=== PATIENT | female | born 1930 | race Caucasian/White ===

== ENCOUNTER 2019-07-16 11:54 | Day surgery (SDC) | payer MEDICARE, BC ==
[2019-07-16] VITALS (11 sets, daily range): BP systolic 125–187; BP diastolic 60–93; PULSE 59–108; TEMP 97.5–98.1
[~2019-07-16] VITALS: Ht 165.1 cm; Wt 53.2 kg
[~2019-07-16 11:54] MED LIST: ADVIL200 MG; ASPIRIN 81M81 MG/TA2 PO; CATAPRES 0.1MG0.1 MG PO; FOSAMAX 10M10 MG/TAB; LEVOXYL0.025 MG PO; LIDODERM 5% PATC1 EA TP; LOPRESSOR 225 MG/TAB PO; LOTREL 10 MG-201 CAP PO; MAG; MOBIC 7.5MG7.5 MG PO; MVI; SYNTHROID0.1 MG/TAB PO; VIT D; ZOCOR 20MG20 MG PO; [UNRECOGNIZED DRUG - OTHER]; coumadin
--- NOTE | 2019-07-16 12:30 | NUR ---
Patient up to restroom at this via wheelwalker with standby assist without any problems or complications.
[2019-07-16] MEDS ORDERED: ASPIRIN 81M81 MG/TA2 PO (12:51)
[2019-07-16] MEDS ORDERED: BIOTIN300 MCG PO (12:52)
[2019-07-16] MEDS ORDERED: CELEBREX 200MG200 MG PO (12:53)
[2019-07-16] MEDS ORDERED: LANOXIN 0.120.125 MG PO (12:54)
[2019-07-16] MEDS ORDERED: CARDIZEM120 MG PO (12:55)
[2019-07-16] MEDS ORDERED: SYNTHROID 0.10.15 MG PO (12:55)
[2019-07-16] MEDS ORDERED: PRINIVIL2.5 MG PO (12:56)
[2019-07-16] MEDS ORDERED: MELATIN 3 MG-11 TAB PO (12:56)
[2019-07-16] MEDS ORDERED: TOPROL XL100 MG PO (12:57)
[2019-07-16] MEDS ORDERED: REMERON 15M15 MG/TA1 PO (12:57)
[2019-07-16] MEDS ORDERED: PROBIOTIC FORMU1 CAP PO (12:58)
[2019-07-16] MEDS ORDERED: PROTONIX 40MG T40 MG PO (12:58)
[2019-07-16] MEDS ORDERED: DEMADEX 20MG20 M1 PO (12:59)
[2019-07-16] MEDS ORDERED: ZOLOFT 50MG50 MG PO (12:59)
[2019-07-16] MEDS ORDERED: MUCINEX 60600 MG/TA1 PO (13:00)
[2019-07-16] MEDS ORDERED: 00186-0370-20 IH (13:00)
[2019-07-16] MEDS ORDERED: TYLENOL 325MG325 MG PO (13:01)
--- NOTE | 2019-07-16 19:30 | NUR ---
Pt. sitting up in bed with family at bedside. Pt. is A&OX3, assessment complete. IV to lt. forearm patent, IV fluids infusing per orders. Alfredo catheter to DD, Clear yellow urine noted. Pt. denies pain or other needs, call light within reach.
[2019-07-17 04:58] VITALS: BP 132/55; PULSE 69; TEMP 97.6
[2019-07-17 08:30] VITALS: BP 141/68; PULSE 60; TEMP 97.4
--- NOTE | 2019-07-17 09:30 | NUR ---
Discontinued 16 mongolian lizama cath. Emptied 125ml clear prem urine from bag. 7ml withdrawn from ballon. Catheter tip intact. Pericare provided. Pt tolerated procedure well.
--- NOTE | 2019-07-17 09:40 | NUR ---
Patient alert and oriented, answers questions appropriately. See assessment. Alfredo catheter in place and draining clear yellow urine. No c/o at this time.
--- NOTE | 2019-07-17 10:39 | NUR ---
psychiatric social worker met with patient to discuss discharge planning. Patient states she moved to [facility] over one year ago as she could not manage safely in her own home, alone. Patient states she will return to [facility] and signed Preference Form. Patient's son and daughter in law will transport patient to nursing facility, later this date. Worker contacted [facility] and spoke with staff about patient's return later this afternoon. Worker faxed clinical updates. Worker confirmed that patient's nurse spoke with [facility] and they are expecting patient's return later today to a terminal carman bed. Patient has a living will and a durable power of collections attorney for health care on the chart.
--- NOTE | 2019-07-17 11:47 | NUR ---
First visit from the wearing apparel folder. Senior Category Manager prayed with patient per request. No other needs right now.
[2019-07-17 11:48] VITALS: BP 151/70; PULSE 73; TEMP 97.8
--- NOTE | 2019-07-17 14:51 | NUR ---
Patient discharged to [facility] with son at 1450. Report called to [facility].
== END 2019-07-17 14:50 ==
LOC: SDCO 11:54 → JCC 18:00 → SDCO 07-17 14:50
DX: C67.9 Malignant neoplasm of bladder, unspecified (principal); E78.5 Hyperlipidemia, unspecified; I10 Essential (primary) hypertension; E03.9 Hypothyroidism, unspecified; M19.049 Primary osteoarthritis, unspecified hand; Z90.49 Acquired absence of other specified parts of digestive tract; Z90.710 Acquired absence of both cervix and uterus; Z79.82 Long term (current) use of aspirin; Z79.52 Long term (current) use of systemic steroids; Z88.5 Allergy status to narcotic agent; Z80.8 Family history of malignant neoplasm of other organs or systems; Z80.6 Family history of leukemia; Z91.048 Other nonmedicinal substance allergy status; Z88.8 Allergy status to other drugs, medicaments and biological substances; Z88.6 Allergy status to analgesic agent; Z96.653 Presence of artificial knee joint, bilateral
CPT/HCPCS: OP; A9284; J0690; J1100; J2405; J2704; J3010; J7120